=== PATIENT | female | born 1990 | race Caucasian/White ===

== ENCOUNTER 2016-11-12 20:02 | Emergency (ER) | payer OTHER ==
[~2016-11-12] VITALS: Ht 154.9 cm; Wt 67.3 kg
[2016-11-12 20:24] VITALS: BP 132/82; PULSE 73; RESP 16; O2SAT 100
--- NOTE | 2016-11-12 21:33 | ED.REPORT ---
HPI-Extremity Problem Lower Date of Service Nov 12, 2016 ED Provider: Constantino Zavaleta DO Patient is a 26 year old female who presents to the ED complaining of left knee pain onset 3 days ago. Associated symptoms include difficulty walking due to pain. She reports that she was jumping in a [employer] [place] 3 days ago and her knee started hurting after she got out. Patient states she has tried using ibuprofen and ice but the pain has not improved. Nursing Notes Stated Complaint: HURT KNEE Chief Complaint: Extremity Trauma Nursing Notes Reviewed: Yes Allergies: Coded Allergies: No Known Allergies (Unverified , 11/12/16) General Time Seen by MD: 21:33 Chief Complaint Knee injury left Hx Obtained From: Patient Arrived By: Walk-in Onset Occurred: 3 days ago Symptom Duration: Since onset Location: : Knee left Quality: Painful Severity: Current: Moderate Associated with: Reports: Unable to bear weight Exacerbated by: Movement Similar Sx Previous: No Past Medical History Past Medical History none reported Smoking History Unknown if Ever Smoker Social History Other Social History: Lives with children Ambulatory Status Independent Review of Systems Constitutional: Denies: Chills, Fever Musculoskeletal: Reports: Extremity pain Skin: Denies Itching, Denies Rash Neurologic: Reports: Problem walking, Denies: Numbness, Weakness Complete sys rev & neg: except as marked. Physical Exam Initial Vital Signs Vital Signs (First) Date Time Temp Pulse Resp B/P Pulse Ox O2 Delivery O2 Flow Rate FiO2 11/12/16 20:24 36.8 73 16 132/82 100 Room Air Initial VS: Reviewed Lower Extremity / Pelvis / MS: Neurologic intact, Vascular intact left posterior drawer test positive laxity of left knee Ankle / Foot: Atraumatic, Inspection NL, No swelling General/Constitutional: Awake, Alert Respiratory / Chest: Atraumatic, No respiratory distress Skin: Atraumatic, Color NL, No rash, Warm, Dry Neurologic: Oriented X3, Speech NL Head / Eyes: Atraumatic, Normocephalic, PERRL, EOMI Psychiatric: Affect NL, Mood NL Interpretation & Diagnostics Lab Results Interpretation Test 11/12/16 20:42 Hold Urine Received (Received) X-Ray Interpretation Xray Interpretation: IMPRESSION: No abnormality seen in these 3 views of the left knee. Dictated by: Fidencio Zepeda M.D. on 11/12/2016 at 21:31 Approved by: Fidencio Zepeda M.D. on 11/12/2016 at 21:31 X-Ray Ordered: Knee left Interpretation / Wet Read by: Interpret - Radiologist Procedures Splint Application - Fx Mgt Splint Application- Fx Mgt: knee immobilizer Time: 22:07 Procedure Performed by: Cook Candy Precise Anatomic Location: left knee Definitive Fracture Care: Pain control Post-Procedure / Complications: Cap refill normal, Post splint vascular nl, Post splint neuro nl, Condition improved, Tolerated procedure well, Patient stable Re-Eval/Medical Decision Re-Evaluation/Progress : Time of Eval: 22:10 Re-Evaluation/Progress Note: Discussed X-ray results, plan for knee immoblizer and discharge. Patient understands and agrees to plan. All questions were addressed. Counseled Regarding: Diagnosis, Lab results, Need for follow-up, When/why to return to ED Discharge & Departure Impression: Primary Impression: Knee sprain Encounter type: initial encounter Involved ligament of knee: unspecified ligament Laterality: left Qualified Code: S83.92XA - Sprain of unspecified site of left knee, initial encounter Disposition: Home Discharge Condition All VS Reviewed: Yes Condition: Stable Patient Instructions: Crutch Instructions (ED) Additional Instructions: Your X-ray was normal and reassuring. There was no evidence of a fracture. You can take 1-2 [place] every 6 hours as needed for pain.Do not combine with Acetaminophen. Do not drink alcohol or drive while taking the pain medication as it can have a sedating effect. Follow up with the referred orthopedic surgeon next week if your pain persists. Wear the knee immobilizer and use the crutches until you are cleared by ortho. Return to the emergency department if you develop any new or concerning symptoms. Referrals: Salomon Licea DO (PCP) Evaristo Ayala Attestation Portions of this note were transcribed by Marisabel Collado. I, Dr. Zavaleta personally performed the history, physical exam and medical decision-making; I reviewed and confirmed the accuracy of the information in the transcribed note. Signed by: Tacho Cameron, 11/12/16 copies to: Salomon Licea DO; Evaristo Ayala Todd P DO Nov 12, 2016 21:33 Reina Collado Nov 12, 2016 22:03
--- NOTE | 2016-11-12 21:33 | DRSVH ---
PROCEDURE: X-RAY LEFT KNEE, THREE VIEWS ([id number]) INDICATIONS: left knee pain TECHNIQUE: 3 views of the knee were acquired. COMPARISON: None. FINDINGS: Bones: No fractures or dislocations. No suspicious bony lesions. Soft tissues: No joint effusion. No suspicious soft tissue calcifications. IMPRESSION: No abnormality seen in these 3 views of the left knee. Dictated by: Fidencio Zepeda M.D. on 11/12/2016 at 21:31 Approved by: Fidencio Zepeda M.D. on 11/12/2016 at 21:31
[2016-11-12] MEDS ORDERED: _HYDROcodone/APAP 5-325 mg Tablet PO PRN (22:05)
== END 2016-11-12 23:10 | disposition home or self-care (01) ==
LOC: SED 20:02
DX: S83.92XA Sprain of unspecified site of left knee, initial encounter (principal); X50.3XXA Overexertion from repetitive movements, initial encounter; Y93.9 Activity, unspecified; Y92.9 Unspecified place or not applicable; Y99.8 Other external cause status